=== PATIENT | female | born 1985 | race Caucasian/White ===

== ENCOUNTER 2018-07-28 13:35 | Day surgery (SDC) | payer OTHER, SELFPAY ==
[2018-07-23 14:23] VITALS: BMI 39.3
--- NOTE | 2018-07-28 | PATH_ITS ---
[facility] Accession Number: [id number] . 01 Material submitted: . ENDOMETRIAL CURETTINGS . 02 Diagnosis: Endometrial Curettings: Portions of weakly proliferative endometrium with features of breakdown and shedding; negative for glandular hyperplasia, cytologic atypia, and malignancy. V/07/29/2018 . 02 Electronically signed: . Fabi Perez MD, Pathologist NPI- [id number] . 01 Gross description: . Received one formalin-filled container labeled with the patient's name and labeled endometrial curettings. The specimen consists of approximately a 3 cc aggregate of tissue, mucoid material, and blood, which is filtered, wrapped, and entirely submitted in cassettes A1 and A2. ([id number]) /FRR . 02 Pathologist provided ICD-10: N85.00 . 02 CPT . 816716 Performed at: 01 [facility] [address] [facility], [place], [place] [id number] MD Raymond Cui MD Phone: [phone] Performed at: 02 [facility] [address] [place], [place] [id number] MD Austen Glynn MD Phone: [phone]
--- NOTE | 2018-07-28 13:47 | SUR.OPER ---
Lithotomy on padded OR bed, head on pillow, arms secured on padded arm boards at <90 degrees abduction. Legs secured in padded yellow fins stirrups.
[2018-07-28 13:55] VITALS: BP 143/91; PULSE 79; RESP 16; TEMP 36.5; O2SAT 100; BMI 39.3
[2018-07-28] MEDS: LACTATED RINGERS 1,000 ML 42 ML IV (14:05)
--- NOTE | 2018-07-28 14:05 | PM.PREOP ---
Pre-operative Note Interval Note Pre-op Check: Yes History & Physical Reviewed by Physician Changes: No
[2018-07-28] MEDS: BUPIVACAINE 0.25% W/ EPI VIAL 50 ML INJ (14:28)
[2018-07-28 14:46] VITALS: BP 157/84; PULSE 96; RESP 12; TEMP 36.3; O2SAT 95
[2018-07-28 14:51] VITALS: BP 152/97; PULSE 97; RESP 12; O2SAT 98
[2018-07-28 14:56] VITALS: BP 146/97; PULSE 88; RESP 12; TEMP 36.8; O2SAT 99
--- NOTE | 2018-07-28 14:57 | P.OP_ITS ---
Operative Date/Time/Diagnoses Date of procedure: 07/28/18 Time of procedure: 14:15 Pre-op diagnosis: Abnormal uterine bleeding Post-op diagnosis: same Procedure: Procedures Operation Date: 07/28/18 14:15 Actual Procedures Side Surgeon p Hysteroscopy D&C w/Endometrial Ablation Anu Miranda MD Indications: The patient is a 33-year-old 6 para 5 abortus 1 female here for hysteroscopy, dilation and curettage, and endometrial ablation for evaluation and management of bothersome heavy and frequent menses. She also has severe dysmenorrhea and has been using Aleve as needed with occasional mild improvement in pain. She reports having 2 menstrual periods each month. This is not a new history for her, and she was going to have an endometrial ablation when she got the last time. She has an obstetric history significant for a miscarriage with her 1st in 2003 followed by 5 term deliveries, which consisted of vaginal deliveries x4 the a for the last one. Her was for failed induction of labor with cholestasis at 37 weeks gestation. She had a bilateral tubal occlusion in 2015 at the time of the C- section. Her bleeding pattern is complicated by the fact that she is allergic to feminine products, such as pads and tampons, so she has started using a menstrual cup. 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 She has tried and failed control pills, progestin IUD, and Depo-Provera prior to her cholestasis in . The risks, benefits, all operatives, limitations, and expectations of surgery were discussed, the consent was reviewed and signed prior to the surgery. Surgeon: Anu Miranda Anesthesia Type: General and Local (0.25% Marcaine with epi) Operative Notes Findings: Exam under anesthesia: Uterus 7 weeks and anteverted. No adnexal masses palpable. Operative findings: A small amount of tissue obtained with curettage. Endometrial cavity appeared normal with no masses or polyps. The tubal ostia were seen bilaterally. The uterine cavity length was measured to be 5.5 cm, and the width 4.5 cm. The endometrial ablation was performed at 136W power for 64 sec. Hysteroscopy following the ablation noted excellent cauterization throughout the cavity. Closure Type: not applicable Specimen(s): endometrial curettings Estimated blood loss (mL): 9 Blood products transfused: none Procedure in detail: The patient was taken to the operating room where general anesthesia with LMA was administered without difficulty. She was then placed in the high dorsal lithotomy position with her lower extremities in Yellofin stirrups. Exam under anesthesia was then performed with the findings as noted above. Perineum and vagina were then prepped and draped in a sterile fashion, and in-and-out catheterization was performed. Procedure Time-Out was performed. A sterile bivalve speculum was then placed. The anterior lip of the cervix was then grasped with a single-toothed tenaculum. Local anesthetic using 0.25% Marcaine with epinephrine was then injected at the 2:00, 4:00, 7:00, and 10:00 positions for a paracervical block. The cervix was then serially dilated until 7 mm 30-degree hysteroscope could be gently advanced to the uterine fundus. Using sterile saline for distention, poor visualization was noted secondary to blood, and the hysteroscope was removed. Sharp curettage was then performed on all 4 cotter of the uterus. This tissue was sent for pathology. The hysteroscope was then reintroduced, and the uterine cavity was visualized with the findings as noted above. The NovaSure endometrial ablation device was then placed onto the sterile field. The endometrial cavity length was measured to be 5.5 cm. The NovaSure device was then inserted into the endometrium, and the array deployed. The endometrial cavity width was determined to be 4.5 cm. Carbon dioxide gas insufflation test was then performed without complication. Ablation was then performed for 64 sec to a power of 136 W. The array was then retracted, and the device removed from the endometrial cavity. The diagnostic hysteroscope was then replaced into the endometrial cavity, and visualization noted excellent cauterization throughout. The hysteroscope was then removed. The tenaculum was then removed, and the tenaculum sites hemostatic after application of gentle pressure using a sponge stick. At this point, the procedure was deemed complete. Sponge, lap, and needle count were correct x3. There were no complications. The patient was then taken to the recovery room in stable condition. Complications: none Post-operative Condition: stable Disposition: same day surgery Plan for aftercare: See discharge instructions for precautions and limitations.
[2018-07-28 15:09] VITALS: BP 145/96; PULSE 73; RESP 12; TEMP 36.9; O2SAT 98
== END 2018-07-28 15:20 | disposition home or self-care (01) ==
PROVIDERS: Visit Provider Obstetrics & Gynecology
PROC: 0U5B8ZZ Destruction of Endometrium, Via Natural or Artificial Opening Endoscopic (ICD-10-PCS; CPT 58563; principal; 2018-07-28 14:15)
DX: N85.00 Endometrial hyperplasia, unspecified (principal); E66.01 Morbid (severe) obesity due to excess calories
CPT/HCPCS: 58563; 88305; J1100; J2405; J2704; J3010